=== PATIENT | female | born 1995 | race Caucasian/White ===

== ENCOUNTER 2024-02-23 15:33 | Inpatient (IN) | payer BC ==
[~2024-02-23] VITALS: Ht 157.5 cm; Wt 87.1 kg
[2024-02-23] MEDS ORDERED: miSOPROStoL 25 MCG TAB PV SCH (16:15)
[2024-02-23] MEDS ORDERED: MAGNESIUM HYDROXIDE/AL HYDROX 30 ML CUP PO PRN (16:15)
[2024-02-23] MEDS ORDERED: OXYTOCIN/DEXTROSE 5% 20 UNITS/100 ML BAG IV SCH (16:15)
[2024-02-23] MEDS ORDERED: CALCIUM CARBONATE 500 MG CHEW PO PRN (16:15)
[2024-02-23 16:41] LABS: CREATININE, RANDOM URINE 21.46 mg/dL (NOT ESTABLISHED); PROTEIN, RANDOM URINE <6 mg/dL (NOT ESTABLISHED)
[2024-02-23 16:44] LABS: HEMATOCRIT 38.3 % (35.0-50.0); MCH 32.1 (27-36); MCV 94.6 fl (81-99); RBC 4.05 M/ul (4.3-5.7); RDW 13.1 (10.5-15.0)
[2024-02-23 16:56] LABS: AMPHETAMINES, URINE NEGATIVE (NEGATIVE); BARBITURATES, URINE NEGATIVE (NEGATIVE); BENZODIAZEPINE, URINE NEGATIVE (NEGATIVE); BUPRENORPHINE, URINE NEGATIVE (NEGATIVE); CANNABINOID, URINE NEGATIVE (NEGATIVE); COCAINE, URINE NEGATIVE (NEGATIVE); ECSTASY, URINE NEGATIVE (NEGATIVE); FENTANYL, URINE NEGATIVE (NEGATIVE); METHADONE, URINE NEGATIVE (NEGATIVE); OPIATES, URINE NEGATIVE (NEGATIVE); OXYCODONE, URINE NEGATIVE (NEGATIVE); PHENCYCLIDINE, URINE NEGATIVE (NEGATIVE)
[2024-02-23 16:59] LABS: CREATININE, SERUM 0.86 mg/dL (0.55-1.02)
[2024-02-23 17:17] LABS: ABO AB; ANTIBODY SCREEN NEGATIVE; RH POSITIVE
[2024-02-24] MEDS ORDERED: OXYTOCIN/0.9 % SODIUM CHLORIDE 500 ML IV SCH ×2 (01:15→08:45)
[2024-02-24] MEDS ORDERED: PENICILLIN G POTASSIUM 5 MUNITS/110 ML PIGGYBACK IV ONE (01:15)
[2024-02-24] MEDS ORDERED: ondansetron HCL 4 MG/2 ML VIAL IV PRN (04:00)
[2024-02-24] MEDS ORDERED: PENICILLIN G POTASSIUM 5 MUNITS/10 ML VIAL ONE (04:01)
[2024-02-24] MEDS ORDERED: LACTATED RINGER'S 1,000 ML IV ONE (04:30)
[2024-02-24] MEDS ORDERED: PENICILLIN G POTASSIUM 2.5 MUNITS in DEXTROSE 5% 100 ML IV SCH (05:15)
[2024-02-24] MEDS ORDERED: OXYCODONE HCL 5 MG TAB PO PRN (08:45)
[2024-02-24] MEDS ORDERED: BENZOCAINE 60 ML AEROSOL TOP PRN (08:45)
[2024-02-24] MEDS ORDERED: CALCIUM CARBONATE 500 MG CHEW PO PRN (08:45)
[2024-02-24] MEDS ORDERED: ACETAMINOPHEN 325 MG TAB PO PRN (08:45)
[2024-02-24] MEDS ORDERED: LIDOCAINE 2% VISCOUS 6 ML SYR TOP ONE ×2 (08:45)
[2024-02-24] MEDS ORDERED: IBUPROFEN 600 MG TAB PO PRN (08:45)
[2024-02-24] MEDS ORDERED: OXYCODONE/APAP 5/325 TAB PO PRN (08:45)
[2024-02-24] MEDS ORDERED: MAGNESIUM HYDROXIDE/AL HYDROX 30 ML CUP PO PRN (08:45)
[2024-02-24] MEDS ORDERED: MAGNESIUM HYDROXIDE 30 ML UDC PO PRN (08:45)
[2024-02-24] MEDS ORDERED: WITCH HAZEL/GLYCERIN 1 EA PAD TOP PRN (08:45)
[2024-02-24] MEDS ORDERED: HYDROCODONE/ACETA 5/325 TAB PO PRN (08:45)
[2024-02-24] MEDS ORDERED: HYDROCORTISONE ACETATE 25 MG SUPP PR PRN (08:45)
[2024-02-24] MEDS ORDERED: SENNOSIDES/DOCUSATE 1 EA TAB PO SCH (09:00)
== END 2024-02-25 13:10 | disposition home or self-care (01) | DRG 807 ==
LOC: FBC 15:33
PROVIDERS: ADMIT Student in an Organized Health Care Education/Training Program; ATTEND Student in an Organized Health Care Education/Training Program
PROC: 10E0XZZ Delivery of Products of Conception, External Approach (ICD-10-PCS; principal; 2024-02-24)
PROC: 0HQ9XZZ Repair Perineum Skin, External Approach (ICD-10-PCS; 2024-02-24)
DX: O14.94 Unspecified pre-eclampsia, complicating childbirth (principal); O69.81X0 Labor and delivery complicated by cord around neck, without compression, not applicable or unspecified; O99.824 Streptococcus B carrier state complicating childbirth; O70.0 First degree perineal laceration during delivery; Z37.0 Single live birth; Z3A.39 39 weeks gestation of pregnancy
CPT/HCPCS: 36415; 80307; 82565; 82570; 84156; 84450; 84520; 84550; 85027; 86850; 86900; 86901; A9270; J2405; J2540; J2590; J7121